=== PATIENT | male | born 1960 | race Caucasian/White ===

== ENCOUNTER → 2017-11-19 | Outpatient (CLI) | payer OTHER ==
[~2017-11-19] MED LIST: ALBU8.5H IH; AMOX500T10 PO; AZIT-1 PO; BENZ200C15 PO; CEP500 PO; CETI-169 PO; CORED RIGHT EAR; CYC10 PO; DIAZ-305 PO; FLUT16SP19 NS; GUAI120L3 PO; HYDR-3104 PO; HYDR2TAB74 PO; LOP2 PO; LOPE-101 PO; LOPE1TAB55 PO; LOR75 PO; METH4TAB66 PO; MULT-1335 PO; NO RTN MEDS; PER PO; PRED-314 PO; PRED20TA6 PO; TADA10TA14 PO; TADA5TAB7 PO; augmentin
--- NOTE | 2017-11-19 12:22 | RADIOLOGY IMAGING REPORT ---
FACILITY: [facility] [place] PATIENT NAME: Nam Calderon : 1960 MR: [id number] V: [id number] EXAM DATE: ORDERING PHYSICIAN: JENNY KRUGER TECHNOLOGIST: [place] [facility] [place] Calder[place] : 1960 Visit/Account:[id number] Date of Sevice: 11/19/2017 CHEST PA AND LAT COMPARISONS: None. ADDITIONAL PERTINENT HISTORY: Shortness of breath FINDINGS: Cardiomediastinal silhouette: Negative. Pulmonary vasculature: Negative. Lung [place]: Negative. Pleural spaces: Negative. Osseous structures: Patient status post previous anterior interbody fusion of the lower cervical spi ne. Surrounding soft tissues: Negative. IMPRESSION: No evidence of acute cardiopulmonary disease. Report Dictated By: Chucky Arredondo MD at 11/19/2017 12:17 PM Report E-Signed By: Chucky Arredondo MD at 11/19/2017 12:18 PM WSN:[id number]
== END ==
LOC: RAD 11:32
PROVIDERS: ATTEND Nurse Practitioner Primary Care
DX: R06.02 Shortness of breath (principal)
CPT/HCPCS: 71046

== ENCOUNTER → 2018-07-08 | Outpatient (CLI) | payer OTHER | LOC: LAB 11:41 | PROVIDERS: ATTEND Urology | DX: Z12.5 Encounter for screening for malignant neoplasm of prostate (principal) | CPT/HCPCS: 36415; 84153 ==